=== PATIENT | female | born 1975 | race Caucasian/White ===

== ENCOUNTER 2024-02-21 19:52 | Emergency (ER) | payer SELFPAY ==
[2024-02-21 19:55] VITALS: BP 182/103
[2024-02-21 20:32] VITALS: BP 126/80
--- NOTE | 2024-02-21 20:35 | ED.GENMED ---
History of Present Illness
<Jillian Allen PA-C - Last Filed: 02/22/24 00:48>
General
Chief Complaint: Skin Problem
Source: patient
Exam Limitations: none
Time Seen by Provider: 02/21/24 20:05
Nursing documentation reviewed up to this point in time: agreed with
History of Present Illness
History of Present Illness:
Patient is a 48-year-old with history hypertension, type 2 diabetes presenting to the emergency department for evaluation of persistent left foot infection despite oral antibiotics. Patient states she started with a blister on her left lateral foot
near fifth digit approximately 2 weeks ago. Blister popped and wound on her sole of her left foot developed. Pain and redness seem to spread from left foot up to left calf. Patient was seen at [facility] on 02/09/2024 where they diagnosed
her with cellulitis and started on a 10-day course of Keflex.
Patient presents today with persistent pain in her left foot when ambulating and mild redness of left calf. She does however, state that swelling and redness to left calf and left foot have seemed to decrease. Patient concerned given her
uncontrolled diabetes and infection will continue to worsen and she will require an amputation.
Patient denies any systemic fevers or chills. No nausea or vomiting. No chest pain or shortness of breath.
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 She did have a negative DVT and PE study on 02/09/2024 at [facility].
Patient currently without insurance and has been struggling to adhere to diabetic medications and Eliquis.
Review of Systems
<Jillian Allen PA-C - Last Filed: 02/22/24 00:48>
Review of Systems
Allergies reviewed?: Yes
All Other Systems: ROS reviewed and negative except as documented in HPI and ROS
Phy Exam
<Jillian Allen PA-C - Last Filed: 02/22/24 00:48>
Physical Exam
Physical Exam:
Vitals: Hypertensive. Temp of 99.4 F. Otherwise vital signs stable
General: Patient is well appearing, no acute distress. Nontoxic-appearing
Skin: Open wound to sole of left foot just inferior to fifth digit with surrounding erythema. No purulent drainage. Very mild erythema noted to left foot near toes and left distal calf.
Head: Normocephalic, atraumatic
Eyes: Sclera nonicteric. EOMs intact. No nystagmus.
Throat: Protecting airway
Neck: Normal ROM, no cervical spine tenderness, no meningismus
Cardiac: Regular rate and rhythm, no murmurs.
Pulm: Normal respiratory effort, no wheezes, rales, rhonchi heard on exam.
Abdomen: No abdominal tenderness.
Extremities: Wound to left foot as described above. Bilateral lower extremity edema L>R with erythema of left calf. Palpable DP pulse in bilateral lower extremities.
Neuro: Grossly intact.
Psychiatric: Normal affect.
Course
<Jillian Allen PA-C - Last Filed: 02/22/24 00:48>
Orders/Labs/Results
Orders:
Orders
02/21/24 20:49
CMP [Comprehensive Metabolic Panel] Urgent
Complete Blood Count/With Diff Urgent
Wound Culture [Wound/Abscess/Other Culture] Urgent
EMILY Source: Toe
Specimen Description:
Date Specimen was Collected: 02/21/24
Time Specimen was Collected: 20:44
02/21/24 20:53
Foot, Left 3 View [CR Foot - Left Min 3 Views] Urgent
Comment:
Reason For Exam: L foot wound
02/21/24 21:16
0.9% Sodium Chloride 1000 ml [Nss] 1,000 ml IV BOLUS
02/21/24 23:15
Insulin Human Regular [Novolin R] 6 units IV NOW STA
Abnormal Lab Results
02/21/24 02/21/24 02/21/24
20:49 22:57 23:42
Hct 35.9 L %
(37.0-47.0)
MCV 79.1 L fL
(81.0-99.0)
Chloride 96 L mmol/L
(98-107)
BUN 29 H mg/dl
(7-17)
Glucose 457 H* mg/dl
(70-99)
Alkaline Phosphatase 186 H U/L
(38-126)
POC Glucose 432 H mg/dl 389 H mg/dl
(70-99) (70-99)
02/22/24
00:18
Hct
MCV
Chloride
BUN
Glucose
Alkaline Phosphatase
POC Glucose 330 H mg/dl
(70-99)
02/21/24 20:49
02/21/24 20:49
Vital Signs
Initial and Last Documented VS:
Initial Vital Signs
Temp Pulse Resp BP Pulse Ox
99.4 F 101 16 182/103 98
02/21/24 19:55 02/21/24 19:55 02/21/24 19:55 02/21/24 19:55 02/21/24 19:55
Last Documented Vital Signs
Temp Pulse Resp BP Pulse Ox
99.4 F 93 16 126/80 96
02/21/24 19:55 02/21/24 20:38 02/21/24 19:55 02/21/24 20:32 02/21/24 20:33
<Junior Trujillo, DO - Last Filed: 02/21/24 22:29>
Orders/Labs/Results
Orders:
Orders
02/21/24 20:49
CMP [Comprehensive Metabolic Panel] Urgent
Complete Blood Count/With Diff Urgent
Wound Culture [Wound/Abscess/Other Culture] Urgent
EMILY Source: Toe
Specimen Description:
Date Specimen was Collected: 02/21/24
Time Specimen was Collected: 20:44
02/21/24 20:53
Foot, Left 3 View [CR Foot - Left Min 3 Views] Urgent
Comment:
Reason For Exam: L foot wound
02/21/24 21:16
0.9% Sodium Chloride 1000 ml [Nss] 1,000 ml IV BOLUS
02/21/24 23:15
Insulin Human Regular [Novolin R] 6 units IV NOW STA
Abnormal Lab Results
02/21/24 02/21/24 02/21/24
20:49 22:57 23:42
Hct 35.9 L %
(37.0-47.0)
MCV 79.1 L fL
(81.0-99.0)
Chloride 96 L mmol/L
(98-107)
BUN 29 H mg/dl
(7-17)
Glucose 457 H* mg/dl
(70-99)
Alkaline Phosphatase 186 H U/L
(38-126)
POC Glucose 432 H mg/dl 389 H mg/dl
(70-99) (70-99)
02/22/24
00:18
Hct
MCV
Chloride
BUN
Glucose
Alkaline Phosphatase
POC Glucose 330 H mg/dl
(70-99)
02/21/24 20:49
02/21/24 20:49
Vital Signs
Initial and Last Documented VS:
Initial Vital Signs
Temp Pulse Resp BP Pulse Ox
99.4 F 101 16 182/103 98
02/21/24 19:55 02/21/24 19:55 02/21/24 19:55 02/21/24 19:55 09/22/24 19:55
Last Documented Vital Signs
Temp Pulse Resp BP Pulse Ox
99.4 F 93 16 126/80 96
02/21/24 19:55 02/21/24 20:38 02/21/24 19:55 02/21/24 20:32 02/21/24 20:33
<Jillian Allen PA-C - Last Filed: 02/22/24 00:48>
MDM/Problems Addressed
Differential Diagnosis Includes:
Not limited to: Cellulitis, diabetic foot infection, osteomyelitis, DVT
MDM/Problems Addressed:
48-year-old female with history of poorly controlled diabetes presenting with healing cellulitis of left foot. Patient recently started on 10-day course of Keflex at [facility] on 02/09/2024. Presenting with persistent redness and wound to
left foot. Was able to compare to photos taken prior to antibiotic with clear improvement in edema, erythema of left and foot. Patient denies any systemic symptoms of infection including fever, chills, nausea/vomiting, or weakness. Patient does
endorse noncompliance to all medications given lack of insurance including medications for diabetes while on Eliquis. Patient did have a negative DVT and PE study at [facility] 02/09/2024. High suspicion that lingering edema, erythema of
left lower extremity today is from healing cellulitis. No clinical suspicion for DVT or PE today. X-ray of left foot was obtained which shows soft tissue swelling suggestive of cellulitis. Patient hypertensive on arrival likely secondary to
noncompliance of medications. Labs were initiated. No leukocytosis or left shift. Patient is acutely hyperglycemic with a glucose of 457. No anion gap. Will give liter of fluids and reassess.
Update: Glucose decreased to 389 following liter of saline. Will give 6 units insulin.
Update: Patient glucose of 333 following insulin. Patient very well-appearing. Patient feeling well and ready for discharge
Given clinical improvement in cellulitis of left foot�no indication for admission at this time. Will extend Keflex course. Return precautions discussed at length with patient. Will refer patient to wound care center. Lengthy discussion with
patient regarding importance of compliance to medications. Will send prescriptions for patient's Eliquis, glipizide, metformin with refills for patient. Will refer patient to free clinic. Stable for discharge. Patient seen with attending
physician.
Chronic conditions affecting care:
Type 2 diabetes, hypertension
Acute Exacerbation and/or Progression of Chronic Illness:
Acutely hypertensive, acutely hyperglycemic
<Jillian Allen PA-C - Last Filed: 02/22/24 00:48>
*Radiology
Radiology exam reviewed: preliminary read by ED provider and radiology read reviewed
*Pulse Oximetry
Patient hypoxic: no
*EKG
Interpreted by ED Provider?: NA
*Button Clamper Interpretation
Rate: Button Clamper- N/A
*Critical Care Note
Total Time (30-74mins, 75-104mins- exclusive of procedures): Not Applicable
Data Reviewed
Review of Other/Old Records Reveals: Labs (Labs obtained 02/09/2024 [facility] with no evidence of leukocytosis. Patient was cutely hyperglycemic at that time with glucose in 400s) and Radiology Studies (Negative DVT study and PE study performed
at [facility] 02/09/2020)
<Jillian Allen PA-C - Last Filed: 02/22/24 00:48>
Patient Management
Social determinants of health affecting care: Financial situation and Poor outpatient follow-up
ED Attending Note
<Jillian Allen PA-C - Last Filed: 02/22/24 00:48>
-
Portions of this chart may have been created with voice recognition software.� Occasional wrong word or��sound alike� substitutions may have occurred due to the inherent limitations of voice recognition software.
<Junior Trujillo DO - Last Filed: 02/21/24 22:29>
ED Attending Note
Patient seen and examined by attending physician: Yes
I performed a history and physical exam of patient and discussed management with resident, I reviewed resident's note and agree with documented findings and plan of care.: Yes
ED Attending Note:
I reviewed and agree with history plan by Jillian Wadsworth. Patient is a 48-year-old female with poorly controlled blood sugars, and cellulitis that is healing. Comparison with pictures. She states she can go waste picker medications that she was
prescribed. She has just not had insurance, making it difficult. Will refer to wound center, continue keflex. No indication for admission at this time.
Discharge Plan
Departure
Patient Disposition: Home (Routine Discharge)
Date of Disposition: 02/22/24
Time of Disposition: 00:29
Patient with high blood pressure during this ER visit?: Yes
Condition: Good
Covid-19: Not Applicable
Discharge Problem:
Cellulitis of foot, left, Open wound of left foot, Acute hyperglycemia
Instructions: Cellulitis (Skin Infection), Adult (DC), [facility], BLOOD PRESSURE
Prescriptions:
New
cephalexin 500 mg capsule
500 mg PO QID 7 Days Qty: 28 0RF
apixaban 5 mg tablet
5 mg PO BID 30 Days Qty: 60 3RF
glipizide 2.5 mg tablet
2.5 mg PO DAILY 30 Days Qty: 30 3RF
lisinopril 10 mg tablet
10 mg PO DAILY 30 Days Qty: 30 3RF
metformin 500 mg tablet
500 mg PO BID 30 Days Qty: 60 3RF
No Action
metformin 500 mg Tablet
500 mg PO BID
Patient Comments:
hasnt taken in a few months
lisinopril 10 mg Tablet
10 mg PO DAILY
Patient Comments:
hasn't taken in a few months
methadone 5 mg Tablet
210 mg PO DAILY
Eliquis 5 mg Tablet
5 mg PO BID
Patient Comments:
hasn't taken in a few months
glipizide 2.5 mg Tablet
2.5 mg PO DAILY
Patient Comments:
unsure dose and hasn't taken in a few months
Referrals:
[facility] [Provider Group]
[facility]Outside]
Nelson Jauregui MD [Family Provider] -
Activity Restrictions/Additional Instructions:
RETURN TO THE EMERGENCY DEPARTMENT WITH ANY FEVERS, CHILLS, NAUSEA/ VOMITING, CHEST PAIN, SHORTNESS OF BREATH, NUMBNESS/TINGLING IN LEFT FOOT, SIGNS OF WORSENING INFECTION INCLUDING SIGNIFICANT REDNESS, SWELLING, OR PAIN IN LEFT FOOT/LEG, PUS
DRAINING, WORSENING IN CURRENT SYMPTOMS, OR ANY OTHER CONCERNS
-A prescription for Keflex has been sent to your pharmacy. You should continue this for the next week. Monitor your infection closely return with any signs of persistent/worsening infection
-As discussed/it is very important that you take your medication as prescribed. I have sent all your prescriptions to the pharmacy with a few refills. You should follow-up with your primary care doctor for further evaluation/management. I
provided the information for free clinic and the family residency program.
-You should follow closely with the wound care center for further management of your left foot wound. They should be reaching out to you for an appointment although if you do not hear from them you should contact the office as given above.
Monitor your symptoms closely return to the emergency department any acute worsening/new symptoms
Interventions
Interventions:
*Risk Screen - Suicide Last Done: 02/21/24 20:51
*General Assessment Last Done: 02/21/24 20:39
*Neglect/Abuse Screening Last Done: 02/21/24 20:51
ED- Fall Risk Assessment Last Done: 02/21/24 20:39
ED-Musculoskeletal Assessment Last Done: 02/21/24 20:56
ED-Skin Assessment Last Done: 02/21/24 20:56
Discharge Date and Time
Print Language: WELSH
[2024-02-21 20:51] VITALS: BMI 49.6
[2024-02-21 20:55] LABS: % Basophils 0.3 % (0-2); % Eosinophils 1.3 % (0-6); % Immature Granulocytes 0.5 % (0-0.5); % Lymphocytes 23.8 % (20.5-51.1); % Monocytes 7.5 % (1.7-9.3); % Neutrophils 66.6 % (42.2-75.2); Absolute Eosinophils 0.1 10^3/uL (0-0.7); Absolute Lymphocytes 1.8 10^3/uL (1.2-3.4); Absolute Monocytes 0.6 10^3/uL (0.1-0.6); Hematocrit 35.9 % (37.0-47.0); Hemoglobin 12.7 g/dL (12.0-16.0); Mean Corp Hgb Conc. 35.4 g/dL (33.0-37.0); Mean Corpuscular Volume 79.1 fL (81.0-99.0); Mean Platelet Volume 9.6 fL (7.4-10.4); Nucleated Red Blood Cells % 0 %; Platelet Count 254 10^3/uL (130-400); Red Blood Cell Count 4.54 10^6/uL (4.20-5.40); Red Cell Dist. Width 12.6 % (11.5-14.5); White Blood Cell Count 7.5 10^3/uL (4.8-10.8)
[2024-02-21 21:12] LABS: ALT (SGPT) 18 U/L (0-35); AST (SGOT) 21 U/L (14-36); Albumin 4.1 g/dl (3.5-5.0); Alkaline Phosphatase 186 U/L (38-126); Blood Urea Nitrogen 29 mg/dl (7-17); Calcium 9.3 mg/dl (8.4-10.2); Carbon Dioxide 24 mmol/L (22-30); Chloride 96 mmol/L (98-107); Estimated Creatinine Clearance > 125 ml/min; Glucose 457 mg/dl (70-99); Potassium 4.3 mmol/L (3.5-5.1); Sodium 135 mmol/L (135-145); Total Bilirubin 0.7 mg/dl (0.2-1.3); Total Protein 7.5 g/dl (6.3-8.2); eGFR > 60.00
[2024-02-21] MEDS: NSS 1000 IV (21:22)
[2024-02-21 22:58] LABS: Glucose - Point of Care 432 mg/dl (70-99)
[2024-02-21 23:44] LABS: Glucose - Point of Care 389 mg/dl (70-99)
--- NOTE | 2024-02-21 23:47 | EDRN ---
Patietn ambulated to restroom and back in bed, fluids finished s rechecked, blood sugar was 389, informed LIZET Valenzuela taking care of her, patient okay to get the 6units of insulin and then will recheck blood sugar level.
[2024-02-21] MEDS: NOVOLIN R 6 UNITS IV (23:48)
[2024-02-22 00:20] LABS: Glucose - Point of Care 330 mg/dl (70-99)
[2024-02-22 00:28] VITALS: BP 142/97
== END 2024-02-22 00:54 | disposition home or self-care (01) ==
LOC: EMR 19:52
PROVIDERS: Physician Assistant; EMERGENCY PHYSICIAN Emergency Medicine; FAMILY PHYSICIAN Family Medicine
DX: L03.116 Cellulitis of left lower limb (principal); E11.65 Type 2 diabetes mellitus with hyperglycemia; S91.302A Unspecified open wound, left foot, initial encounter; L08.9 Local infection of the skin and subcutaneous tissue, unspecified; X58.XXXA Exposure to other specified factors, initial encounter; R60.0 Localized edema; I10 Essential (primary) hypertension; D68.9 Coagulation defect, unspecified; D64.9 Anemia, unspecified; Z91.148 Patient's other noncompliance with medication regimen for other reason; Z59.7 Insufficient social insurance and welfare support; Z79.01 Long term (current) use of anticoagulants; Z79.84 Long term (current) use of oral hypoglycemic drugs; Z86.711 Personal history of pulmonary embolism
CPT/HCPCS: 99284; 96374; 96361; 73630; 80053; 82962; 85025; 87070; 87077; 87147; 87186; 87205